=== PATIENT | female | born 1965 | race Asian ===

== ENCOUNTER 2021-05-28 07:39 | Emergency (ER) | payer MEDICAID ==
[~2021-05-28] VITALS: Ht 162.6 cm; Wt 60.5 kg
[2021-05-28 09:19] VITALS: BP 118/75
== END 2021-05-28 11:09 | disposition home or self-care (01) ==
LOC: ED 08:09
DX: R06.00 Dyspnea, unspecified (principal); I50.9 Heart failure, unspecified; Z20.822 Contact with and (suspected) exposure to COVID-19; R94.31 Abnormal electrocardiogram [ECG] [EKG]
CPT/HCPCS: 36415; 71046; 80053; 83880; 84484; 85025; 93005; 96365; 99285; J0696; J7030; U0003; U0005

== ENCOUNTER 2021-05-29 13:07 | Inpatient (IN) | payer MEDICAID ==
[~2021-05-29] VITALS: Ht 162.6 cm; Wt 60.0 kg
[2021-05-31 07:47] VITALS: BP 93/59
== END 2021-05-31 09:51 | disposition left against medical advice (07) | DRG 286 ==
LOC: ED 13:28 → EDIP 19:39 → 5SO 23:32
PROVIDERS: ADMIT Internal Medicine; ATTEND Internal Medicine
PROC: 4A023N7 Measurement of Cardiac Sampling and Pressure, Left Heart, Percutaneous Approach (ICD-10-PCS; principal; 2021-05-30)
PROC: B2111ZZ Fluoroscopy of Multiple Coronary Arteries using Low Osmolar Contrast (ICD-10-PCS; 2021-05-30)
PROC: B2151ZZ Fluoroscopy of Left Heart using Low Osmolar Contrast (ICD-10-PCS; 2021-05-30)
DX: I11.0 Hypertensive heart disease with heart failure (principal); I50.21 Acute systolic (congestive) heart failure; E87.1 Hypo-osmolality and hyponatremia; E87.2 Acidosis; I42.0 Dilated cardiomyopathy; E83.51 Hypocalcemia; F15.10 Other stimulant abuse, uncomplicated; F17.210 Nicotine dependence, cigarettes, uncomplicated; I07.1 Rheumatic tricuspid insufficiency; K21.9 Gastro-esophageal reflux disease without esophagitis; Z20.822 Contact with and (suspected) exposure to COVID-19; Z53.29 Procedure and treatment not carried out because of patient's decision for other reasons; Z66 Do not resuscitate; Z82.3 Family history of stroke; Z79.899 Other long term (current) drug therapy
CPT/HCPCS: 36415; 99291; C8929